=== PATIENT | female | born 1985 | race Caucasian/White ===

== ENCOUNTER 2017-05-21 17:53 | Emergency (ER) | payer MEDICAID, OTHER ==
[~2017-05-21] VITALS: Ht 162.6 cm; Wt 59.0 kg
[~2017-05-21 17:53] MED LIST: AMOX875T2 PO
[2017-05-21] MEDS ORDERED: BIRTH CONTROL (18:07)
--- NOTE | 2017-05-21 21:35 | NUR ---
Pt to room c/o "bump" to labia for approx 5 days. Pt denies vaginal discharge, denies pain and denies odor. Pt resting in position of comfort for self. Awaiting further eval
--- NOTE | 2017-05-21 22:40 | NUR ---
Pelvic exam done by Dr. Rivers with Bharath Cabrera RN as chaparone.
--- NOTE | 2017-05-21 23:00 | NUR ---
UA collected and sent. Labs drawn and sent. Pt to return in 3 days for results. Pt stable for discharge per MD. Pt given ACI. Pt verbalized understanding of dc instructions. Pt ambulated out of er with steady gait.
[2017-05-21 23:04] LABS: *BILIRUBIN,URIN NEGATIVE (NEGATIVE); *BLOOD, URINE Trace-intact (NEGATIVE); *COLOR,URINE YELLOW (YELLOW); *KETONES,URINE NEGATIVE (NEGATIVE); *PROTEIN,URINE NEGATIVE (NEGATIVE); *UROBILINOGEN,URINE 0.2 E.U./dl (NORMAL); LEUKOCYTE ESTERASE ,URINE NEGATIVE (NEGATIVE); NITRITE, URINE NEGATIVE (NEGATIVE); PH,URINE 5.5 (5.0-8.0); UGLUCOSE NEGATIVE (NEGATIVE)
[2017-05-21 23:08] LABS: *CLARITY,URINE HAZY (CLEAR)
[2017-05-21 23:09] LABS: *URINE HCG, QUAL NEGATIVE (NEGATIVE)
[2017-05-21 23:11] LABS: BACTERIA,URINE FEW /HPF (NONE SEEN); RBC,URINE 0-3 /HPF (0-3); SQUAMOUS EPITHELIAL CELL,UR MODERATE /HPF (NONE SEEN)
[2017-05-21 23:12] LABS: MUCUS,URINE MODERATE /LPF (0-FEW)
[2017-05-21 23:15] VITALS: BP 116/78
[2017-05-26 14:07] LABS: *GC NAA Negative (Negative); *TRIC.VAG. NAA Negative (Negative)
== END 2017-05-21 23:16 | disposition home or self-care (01) ==
LOC: ER 17:54
DX: N75.1 Abscess of Bartholin's gland (principal)
CPT/HCPCS: 36415; 81001; 84703; 86592; 87491; 87806; 99284; A4663